=== PATIENT | male | born 1980 | race African-American/Black ===

== ENCOUNTER 2019-07-01 17:04 | Emergency (ER) | payer OTHER ==
[2019-07-01 17:15] VITALS: BP 177/97; PULSE 134; TEMP 99.7
--- NOTE | 2019-07-01 17:15 | PDOC ---
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 who presents with exposure to COVID-19 with associated symptoms of dry cough and back pain. No comorbidities. ROS: NEGATIVE: difficulty breathing, shortness of breath, chest pain, lightheadedness, dizziness, nausea, vomiting and diarrhea. Other 12 point ROS reviewed and negative. Exam: General: NAD, Well-Appearing, Awake, Alert Oriented x3. HR 134. ENT: No rhinorrhea or nasal congestion. Neck: FROM, no midline tenderness. Lungs: Clear to auscultation bilaterally without wheezes, rhonchi or rales. Normal excursion. Patient is able to speak in full sentences. Heart: Tachycardic, regular rhythm, S1-S2 present, no murmurs rubs or gallops. Abdomen: Non-distended. MSK/Extremities: No decrease ROM, No obvious deformities. No obvious cyanosis noted. Neuro: Normal Gait, Cranial Nerves II through XII Grossly Intact. Skin: No obvious rashes, bruising. Color Normal Appearing. Assessment/Plan: Tachycardia Known exposure ASSESSMENT: Reports exposure to positive patients. Treatment: Tylenol for fever / recheck HR CXR Discharge Disposition - Diagnosis Cough - Discharge Dispostion Decision to Admit order: No - Referrals - Patient Instructions Printed Discharge Instructions: [facility]-Coronavirus Instructions, [facility] COVID-19 Isolation Protocol Additional Instructions: You were seen for your cough and possible Coronavirus (COVID-19) Please call the [facility] testing center to make an appointment at or you can call [facility] at from 8:30 AM to 6 PM; or you can visit the [facility] website: [email or web address] for more information about testing at the [facility]. Take Tylenol 650 mg every 6 hours as needed for fever or pain. You may take Robitussin or other [id number] cough syrup. Follow the dosing instructions on the bottle. Warm tea, honey, and salt water gargles may help your symptoms. Please take precautions and self quarantine for 2 weeks and follow-up with your primary care doctor and the Department of Health. Return to the nearest emergency department for shortness of breath, difficulty breathing, chest pain, or if you have any changes in your symptoms. - Post Discharge Activity
[2019-07-01] MEDS ORDERED: ACETAMINOPHEN 325 MG TABLET (FP) PO ONE (17:16)
== END 2019-07-01 18:02 | disposition home or self-care (01) ==
LOC: JER 17:04
DX: R05 Cough (principal); Z20.828 Contact with and (suspected) exposure to other viral communicable diseases
CPT/HCPCS: 71045-TC-FY; 99283-25

== ENCOUNTER 2020-01-20 05:16 | Day surgery (SDC) | payer OTHER ==
--- OUTSIDE RECORDS SUMMARY | 2020-01-12 07:47 | XMS ---
:1980 Author Organization [facility] Care Team Providers Name Role Phone Matt Alcaraz Unavailable Unavailable Other, Doctor Unavailable Unavailable Edenilson, Manuel Unavailable Unavailable Re-disclosure Warning The records that you are about to access may contain information from federally- assisted alcohol or drug abuse programs. If such information is present, then the following federally mandated warning applies: This information has been disclosed to you from records protected by federal confidentiality rules (42 CFR part 2). The federal rules prohibit you from making any further disclosure of this information unless further disclosure is expressly permitted by the written consent of the person to whom it pertains or as otherwise permitted by 42 CFR part 2. A general authorization for the release of medical or other information is NOT sufficient for this purpose. The Federal rules restrict any use of the information to criminally investigate or prosecute any alcohol or drug abuse patient.The records that you are about to access may contain highly sensitive health information, the redisclosure of which is protected by Article 27-F of the [facility] Public Health law. If you continue you may haveaccess to information: Regarding HIV / AIDS; Provided by facilities licensed or operated by the [facility] Office of Mental Health; or Provided by the [facility] Office for People With Developmental Disabilities. If such information is present, then the following [facility] mandated warning applies: This information has been disclosed to you from confidential records which are protected by state law. State law prohibits you from making any further disclosure of this information without the specific written consent of the person to whom it pertains, or as otherwise permitted by law. Any unauthorized further disclosure in violation of state law may result in a fine or care home sentence or both. A general authorization for the release of medical or other information is NOT sufficient authorization for further disclosure. Encounters Encounter Providers Location Date Indications Data Source(s ) Emergency Attender: Matt 5T-EMERG 01/08/2020 LT SHOULDER PAIN [place] - [place] LathanAttender: 09:26:00 AM Hospital Doctor Other EDT - 01/08/2020 10:36:00 AM EDT LT SHOULDER PAIN Patient discharged. Emergency Attender: Manuel 5T-EMERG 07/10/2019 DIZZINESS [facility] [place] [facility] GustaveAttender: Doctor 08:45:00 AM EDT - [facility] Other 07/10/2019 12:42:00 PM EDT DIZZINESS Patient discharged. Medications Medication Brand Start Product Dose Route [facility] Indications Reaction Description Data Name Date Form Instructions Instructions Source(s) Ibuprofen ibupro [id number] active Ibuprof en [facility] 600 MG Oral fen 2019 {tab( Health Tablet 600 mg 10:01: s)} System ibuprofen oral 37 AM 600 mg oral tablet EDT tablet Do not take this drug if you are pregnan t.It is very important that you take or use this exactly as directed. Do not skip d oses or discontinue unless directed by your doctor.May cause drowsiness or dizziness .Obtain medical advice before taking any non-prescription drugs as some may affec t the action of this medication.Take with food or milk. benzonatate benzonatate 07/10/2019 1 [id number] completed Benzonatate [facility] 100 MG Oral 100 mg oral 11:49:20 AM {cap(s)} Health Capsule capsule EDT System benzonatate 100 mg oral capsule May cause drowsiness. Alcohol may inten sify this effect. Use care when operating dangerous machinery.Swallow whole. Do n ot crush. Insurance Providers Payer name Policy type Policy ID Covered Covered Policy Plan / Coverage democrat ID democrat's [employer] In[employer]i on type relationship to rebolledo Affinity Ess Commercial [id number] Plan 1&2 Century Commercial [id number] Protective Services Occupational Commercial [id number] Health NR AFFINITY [id number] ESSENTIAL PLAN 1 2 Problems, Conditions, and Diagnoses Code Display Name Description Problem Type Effective Dates Data Source(s) T14.8XXA Contusion Contusion 07617-9 01/08/2020 12:00:00 [facility] EDT System left shoulder R42 Dizziness Dizziness 48064-4 07/10/2019 [facility] 12:00:00 AM EDT Health stem R05 Cough Cough 39323-8 07/10/2019 [facility] 12:00:00 AM EDT Health stem M25.512 Pain in left Left shoulder Diagnosis 01/08/2020 S - [facility] [facility] pain 09:26:00 AM EDT [facility] Y92.89 Other specified Other specified Diagnosis 01/08/2020 [facility] - [facility] as the places as place 09:26:00 AM EDT [facility] place of of occurrence of occurrence of the external cause external cause T14.8XXA Other injury of Other injury of Diagnosis 01/08/2020 S - [facility] unspecified body unspecified body 09:26:00 AM E [facility] region, initial region, initial encounter encounter W20.8XXA Other cause of Other cause of Diagnosis 01/08/2020 S - [facility] strike by thrown, strike by thrown, 09:26:00 AM EDT [facility] projected or projected or falling object, falling object, initial encounter initial encounter LT SHOULDER PAIN LT SHOULDER PAIN Diagnosis 01/08/2020 [facility] [place] 09:26:00 AM EDT [facility] Y99.0 Civilian activity Civilian activity Diagnosis 01/08/2020 S - [place] done for income done for income 09:26:00 AM EDT [facility] or pay or pay Y93.89 Activity, other Other activity Diagnosis 01/08/2020 S - [place] specified 09:26:00 AM EDT [facility] R42 Dizziness and Dizziness Diagnosis 07/10/2019 [place] - [place] giddiness 08:45:00 AM EDT [facility] DIZZINESS DIZZINESS Diagnosis 07/10/2019 [facility] - [place] 08:45:00 AM EDT [facility] R05 Cough Cough Diagnosis 07/10/2019 [facility] - [place] 08:45:00 AM EDT [facility] Surgeries/Procedures Procedure Description Date Indications Data Source(s) XR Shoulder 2 01/08/2020 [facility] Views-Left XR Shoulder 09:56:00 AM EDT - System 2 Views-Left 01/08/2020 09:56:00 AM EDT Results ID Date Data Source [id number] 01/08/2020 11:37:02 AM EDT [facility] Name Value Range Interpretation Description Data Sup porting Code Source(s) Document(s ) Quantit NegativeNegative Normal (applies Quantiteron-T [facility] parul-TB test result. M. to non-numeric B Gold. Health Gold. tuberculosis results) System complex infectionunlikely. TBAG-NI < 0.00 Normal (applies TB AG-NIL [facility] L to non-numeric Health results) System Mitogen > 10.00 Normal (applies Mitogen-NIL [facility] -NIL to non-numeric Health results) System The Nil tube value is used to determine if the patient has apreexisting immune response which could cause a false-posit klaudia reading on the test.In order for a test to be valid, the Nil tube must have aval ue of <=8.0 IU/mL.The mitogen control tube is used to assure the patient hasa healthy immune status and also serves as a control forcorrect blood handling and incubation . It is used to detectfalse-negative readings. The mitogen tube must have a g ammainterferon value >=0.5 IU/mL higher than the value of the Niltube.The TB Antigen tube is coated with the M. tuberculosisspecific antigens. For a te st to be considered positive,the TB antigen tube value minus the Nil tube value must be>=0.35 IU/mL.For additional information, please refer [email or web address]/QFT(This link is being provided for informational/educationalpu rposes only.)Test Performed at:[facility] [address], [place], [place] [address]PplutbopAjit Lemons M.D. NIL 0.11 {IU/mL} Normal (applies to non-numeric NIL [facility] results) ID Date Data Source [id number] 01/08/2020 11:37:02 AM EDT [facility] Name Value Range Interpretation Description Data Source(s ) Supporting Code Document(s ) Hepatiti 13 Normal (applies to Hepatitis B [facility] sBSurfac {mIU/mL} non-numeric [facility] eAntibod results) Antibody. y. Patient has immunity to hepatitis B viru s.Test Performed at:[facility], [place] [address] Ajit Lemons M.D. ID Date Data Source [id number] 01/08/2020 11:37:02 AM EDT [facility] System Name Value Range Interpretation Description Data Sup porting Code Source(s) Document(s ) MumpsIgGAntibody > 5.00 Normal (applies Mumps IgG [facility] to non-numeric Antibody Health results) System UNITS: Index ValueInterpretation: Posit klaudia or ImmuneA positive result indicates that the patient has antibodyto Mumps Virus. It does not differentiate between active orpast infection. The clinical diagnosis must be interpretedin conjunction with the clinical signs and symptoms of thepatien t.Index Value Results Interpretation <0 .91 Negative - No Mumps IgG ant ibody detected.0.91-1.09 Equivocal - Presence or absence of Mumps IgGantibody cannot be discerned.>=1.10 Positive - Mumps IgG antibody de tected.Test Performed at:[facility], [place], [place] [address]YwmwroxmAjit Lemons M.D. ID Date Data Source [id number] 01/08/2020 11:37:02 AM EDT [facility] System Name Value Range Interpretation Description Data Sup porting Code Source(s) Document(s ) VaricellaResultVa 2.09 Normal (applies Varicella [facility] lue to non-numeric Result Value Health results) System VaricellaInterpre Positive Normal (applies Varicella [facility] tation <0.6 to non-numeric Interpretation Health results) System Negative> =0.6 - <.90 Equivocal >=.90 Positive ID Date Data Source [id number] 01/08/2020 11:37:02 AM EDT [facility] System Name Value Range Interpretation Description Data Sup porting Code Source(s) Document(s ) Rubella 163 Normal (applies Rubella [facility] {IU/mL} to non-numeric Health results) System RubellaInterpreta Positive Normal (applies Rubella [facility] tion <5 to non-numeric Interpretation Health Negative> results) System =5 - <10 Equivocal >= 10 Positive ID Date Data Source [id number] 01/08/2020 11:37:02 AM EDT [facility] System Name Value Range Interpretation Description Data Sup porting Code Source(s) Document(s ) RubeolaABIgGResul 2.80 Normal (applies Rubeola AB IgG M [facility] tValue to non-numeric Result Value Health results) System RubeolaABIgGinter Positive Normal (applies Rubeola AB IgG [facility] pretation to non-numeric interpretation Health results) System <.50 Negative>=.50 - <.70 Equivo august>=.70 Positive ID Date Data Source [id number] 01/08/2020 11:37:02 AM EDT [facility] System Name Value Range Interpretation Description Data Sup porting Code Source(s) Document(s ) Erythrocytes 5.32 Normal (applies RBC Count [facility] [#/volume] in {10^6_uL to non-numeric Health Blood by } results) System Automated count Leukocytes 5.5 Normal (applies WBC Count [facility] [#/volume] in {10^3_uL to non-numeric Health Unspecified } results) System specimen by Automated count Hemoglobin 14.3 Normal (applies Hemoglobin [facility] [Mass/volume] in {gm/dL} to non-numeric Health Blood results) System Erythrocyte mean 85.3 fl Normal (applies MCV [facility] corpuscular to non-numeric Health volume [Entitic results) System volume] by Automated count Hematocrit 45.4 % Normal (applies Hematocrit [facility] [Volume to non-numeric Health Fraction] of results) System Blood Erythrocyte mean 26.9 pg Below low normal MCH [facility] corpuscular Health hemoglobin System [Entitic mass] by Automated count Erythrocyte 13.4 % Normal (applies RDW-CV [facility] distribution to non-numeric Health width [Entitic results) System volume] by Automated count Erythrocyte mean 31.5 Normal (applies MCHC [facility] corpuscular {gm/dL} to non-numeric Health hemoglobin results) System concentration [Mass/volume] by Automated count Platelets 242 Normal (applies Platelet Count [facility] [#/volume] in {10^3_uL to non-numeric Health Plasma by } results) System Automated count Platelet mean 10.7 fl Normal (applies MPV [facility] volume [Entitic to non-numeric Health volume] in Blood results) System by Automated count Neutrophils 3.5 Normal (applies Neutrophil # [facility] [#/volume] in {10^3_uL to non-numeric Health Body fluid } results) System NRBC# 0.00 Normal (applies NRBC # [facility] {10^3_uL to non-numeric Health } results) System Nucleated 0.0 Normal (applies NRBC % [facility] erythrocytes {/100_WB to non-numeric Health [#/volume] in C} results) System Body fluid Neutrophils/100 64.6 % Normal (applies Neutrophil % Aramis arabella leukocytes in to non-numeric Health Blood by results) System Automated count Lymphocyte 1.3 Normal (applies Lymphocyte # [facility] percent {10^3_uL to non-numeric Health differential } results) System count (procedure) Monocytes/100 6.4 % Normal (applies Monocyte % [facility] leukocytes in to non-numeric Health Blood results) System Monocytes 0.4 Normal (applies Monocyte # [facility] [#/volume] in {10^3_uL to non-numeric Health Blood by Manual } results) System count Lymphocytes 23.3 % Normal (applies Lymphocyte % [facility] [#/volume] in to non-numeric Health Blood by results) System Automated count Basophils 0.05 Normal (applies Basophil # [facility] [#/volume] in {10^3_uL to non-numeric Health Blood by } results) System Automated count Eosinophils/100 4.4 % Normal (applies Eosinophil % Aramis arabella leukocytes in to non-numeric Health Unspecified results) System specimen Basophils/100 0.9 % Normal (applies Basophil % [facility] leukocytes in to non-numeric Health Unspecified results) System specimen by Manual count Eosinophils 0.24 Normal (applies Eosinophil # [facility] [#/volume] in {10^3_uL to non-numeric Health Blood } results) System ImmatureGranuloc 0.02 Normal (applies Immature [facility] ytes# {10^3_uL to non-numeric Granulocytes # Health } results) System ImmatureGranuloc 0.4 % Normal (applies Immature [facility] ytes% to non-numeric Granulocytes % Health results) System ID Date Data Source [id number] 01/08/2020 11:37:02 AM EDT [facility] System Name Value Range Interpretation Description Data Sup porting Code Source(s) Document(s ) HepatitisBSurf Non Normal (applies Hepatitis B [facility] aceAntigen. ReactiveReferen to non-numeric [facility] ce Range: Non results) Antigen. System ReactiveTest Performed at:[facility], [place], [place] Moshe Lemons M.D. HepatitisBSurf DNRTest Normal (applies Hepatitis B [facility] aceAntigenNeut Performed to non-numeric [facility] at:[facility] results) Antigen Neut [facility], [place], [place] Moshe Lemons M.D. ID Date Data Source [id number] 01/08/2020 11:37:02 AM EDT [facility] Name Value Range Interpretation Description Data Sup porting Code Source(s) Document(s ) Potassium 4.4 Normal (applies Potassium, [facility] [Mass/volume] mmol/L to non-numeric Serum Health Syst em in Serum or results) Plasma Sodium 139 Normal (applies Sodium, Serum [facility] [Moles/volume mmol/L to non-numeric Health Syst em ] in Serum or results) Plasma Chloride 101 Normal (applies Chloride, [facility] [Moles/volume mmol/L to non-numeric Serum Health Syst em ] in Serum or results) Plasma Carbon 31.3 Above high normal CO2, Serum [facility] dioxide, mmol/L Health System total [Moles/volume ] in Serum or Plasma Urea nitrogen 11 mg/dl Normal (applies Blood Urea [facility] [Mass/volume] to non-numeric Nitrogen, Health Syst em in Serum or results) Serum Plasma Glucose 81 mg/dL Normal (applies Glucose, Serum [facility] [Mass/volume] to non-numeric Health Syst em in Serum or results) Plasma Anion gap in 6.70 Normal (applies Anion Gap [facility] Serum or mmol/L to non-numeric Health System Plasma results) Creatinine 1.00 Normal (applies Creatinine, [facility] [Mass/volume] mg/dl to non-numeric Serum Health Syst em in Serum or results) Plasma Calcium 9.6 Normal (applies Calcium, Total [facility] [Mass/volume] mg/dl to non-numeric Serum Health Syst em in Serum or results) Plasma ID Date Data Source [id number] 01/08/2020 11:37:02 AM EDT [facility] Name Value Range Interpretation Description Data Sup porting Code Source(s) Document(s ) Aspartate 21 Normal (applies Aspartate [facility] aminotransferase {IU/L} to non-numeric Transaminase, Heal th [Enzymatic results) Serum System activity/volume] in Serum or Plasma by With P-5'-P Bilirubin.total 0.7 Normal (applies Bilirubin, [facility] [Mass/volume] in mg/dl to non-numeric Serum Total Health Serum or Plasma results) System Albumin 4.5 Normal (applies Albumin, [facility] [Mass/volume] in {gm/dl} to non-numeric Serum Health Serum or Plasma results) System TotalProtein 7.5 Normal (applies Total Protein [facility] mg/dl to non-numeric Health results) System Alkaline 57 Normal (applies Alkaline [facility] phosphatase {IU/L} to non-numeric Phosphatase, Health isoenzymes results) Serum System [Enzymatic activity/volume] in Serum or Plasma by Heat stability Alanine 22 Normal (applies Alanine [facility] aminotransferase {IU/L} to non-numeric Aminotransfer Heal th [Enzymatic results) ase, Serum System activity/volume] in Serum or Plasma DirectBilirubin 0.1 Normal (applies Direct [facility] mg/dl to non-numeric Bilirubin Health results) System ID Date Data Source [id number] 01/08/2020 11:37:02 AM EDT [facility] System Name Value Range Interpretation Description Data Sup porting Code Source(s) Document(s ) Triglyceride 75 mg/dl Normal (applies Triglycerides, [facility] [Mass/volume] to non-numeric Serum Health in Serum or results) System Plasma Optimal = < 100 mg/dLBoderline High = 15 0 - 199 mg/dLHigh = 200 - 499 mg/dLVery High = > 500 mg/dL Cholesterol 182 mg/dl Normal (applies Cholesterol, Serum [facility] [Mass/volume] in to non-numeric ZENTICKET S ystem Serum or Plasma results) <200 mg/tx=[id number] mg/dl=border line>240 mg/dl=elevated Cholesterol in LDL 124 mg/dL Normal (applies Low Density [facility] [Mass/volume] in to non-numeric Lipoprotein, Healt h System Serum or Plasma results) Calculated OPTIMAL: LESS THAN 100 mg/dLNEAR OPTIMAL : 100 - 129 mg/dLBODERLINE HIGH: 130 - 150 mg/dL Cholesterol in HDL 43.0 mg/dL Normal (applies HDL Cholestero l, [facility] [Mass/volume] in to non-numeric Serum ZENTICKET S ystem Serum or Plasma results) CHDRisk 4.23 Normal (applies CHD Risk [facility] to non-numeric Health System results) Lowest <3.8Low 3.9 - 4.7Moderate 4 .8 - 5.9High 6.0 - 6.9Highest >7.0 Cholesterol in VLDL 15 Normal (applies to VLDL, Serum [employer] [Mass/volume] in Serum non-numeric results) System or Plasma ID Date Data Source [id number] 01/08/2020 11:37:02 AM EDT [facility] System Name Value Range Interpretation Code Description Data Heidi rce(s) Supporting Document(s ) HbA1C 5.2 % Normal (applies to HbA1C [facility] non-numeric results) System ID Date Data Source [id number] 01/08/2020 11:37:02 AM EDT [facility] System Name Value Range Interpretation Description Data Sup porting Code Source(s) Document(s ) Erythrocytes 5.03 Normal (applies RBC Count [facility] [#/volume] in {10^6_uL to non-numeric Health Blood by } results) System Automated count Hemoglobin 13.3 Below low normal Hemoglobin [facility] [Mass/volume] in {gm/dL} Health Blood System Leukocytes 6.8 Normal (applies WBC Count [facility] [#/volume] in {10^3_uL to non-numeric Health Unspecified } results) System specimen by Automated count Erythrocyte mean 30.9 Below low normal MCHC [facility] corpuscular {gm/dL} Health hemoglobin System concentration [Mass/volume] by Automated count Erythrocyte mean 85.7 fl Normal (applies MCV [facility] corpuscular to non-numeric Health volume [Entitic results) System volume] by Automated count Erythrocyte mean 26.4 pg Normal (applies MCH [facility] corpuscular to non-numeric Health hemoglobin results) System [Entitic mass] by Automated count Hematocrit 43.1 % Normal (applies Hematocrit [facility] [Volume to non-numeric Health Fraction] of results) System Blood Platelet mean 11.0 fl Above high normal MPV [facility] volume [Entitic Health volume] in Blood System by Automated count Platelets 220 Normal (applies Platelet [facility] [#/volume] in {10^3_uL to non-numeric Count Health Plasma by } results) System Automated count Erythrocyte 13.3 % Normal (applies RDW-CV [facility] distribution to non-numeric Health width [Entitic results) System volume] by Automated count ID Date Data Source [id number] 01/08/2020 11:37:02 AM EDT [facility] System Name Value Range Interpretation Description Data Sup porting Code Source(s) Document(s ) Thyrotropin 0.636 Normal (applies Thyroid [facility] [Mass/volume] {mIU/mL} to non-numeric Stimulating Health Sy stem in Serum or results) Hormone, Serum Plasma ID Date Data Source [id number] 01/08/2020 11:37:02 AM EDT [facility] System Name Value Range Interpretation Description Data Sup porting Code Source(s) Document(s ) Sodium 145 Normal (applies Sodium, Serum [facility] [Moles/volume] in mmol/L to non-numeric Health Serum or Plasma results) System Carbon dioxide, 25.0 Normal (applies CO2, Serum [facility] total mmol/L to non-numeric Health [Moles/volume] in results) System Serum or Plasma Potassium 3.9 Normal (applies Potassium, [facility] [Mass/volume] in mmol/L to non-numeric Serum Health Serum or Plasma results) System Chloride 107 Normal (applies Chloride, [facility] [Moles/volume] in mmol/L to non-numeric Serum Health Serum or Plasma results) System TotalProtein 7.6 Normal (applies Total Protein [facility] mg/dl to non-numeric Health results) System Glucose 85 Normal (applies Glucose, [facility] [Mass/volume] in mg/dL to non-numeric Serum Health Serum or Plasma results) System Creatinine 1.20 Normal (applies Creatinine, [facility] [Mass/volume] in mg/dl to non-numeric Serum Health Serum or Plasma results) System Alkaline 68 Normal (applies Alkaline [facility] phosphatase {IU/L} to non-numeric Phosphatase, Health isoenzymes results) Serum System [Enzymatic activity/volume] in Serum or Plasma by Heat stability Urea nitrogen 15 Normal (applies Blood Urea [facility] [Mass/volume] in mg/dl to non-numeric Nitrogen, Health Serum or Plasma results) Serum System Bilirubin.total 0.3 Normal (applies Bilirubin, [facility] [Mass/volume] in mg/dl to non-numeric Serum Total Health Serum or Plasma results) System Aspartate 19 Normal (applies Aspartate [facility] aminotransferase {IU/L} to non-numeric Transaminase, Heal th [Enzymatic results) Serum System activity/volume] in Serum or Plasma by With P-5'-P DirectBilirubin 0.1 Normal (applies Direct [facility] mg/dl to non-numeric Bilirubin Health results) System I.Phosphorus 3.9 Normal (applies I. Phosphorus [facility] mg/dl to non-numeric Health results) System Alanine 26 Normal (applies Alanine [facility] aminotransferase {IU/L} to non-numeric Aminotransfer Heal th [Enzymatic results) ase, Serum System activity/volume] in Serum or Plasma Albumin 4.6 Normal (applies Albumin, [facility] [Mass/volume] in {gm/dl} to non-numeric Serum Health Serum or Plasma results) System Urate 6.7 Normal (applies Uric Acid, [facility] [Mass/volume] in mg/dl to non-numeric Serum Health Serum or Plasma results) System Calcium 9.6 Normal (applies Calcium, [facility] [Mass/volume] in mg/dl to non-numeric Total Serum Health Serum or Plasma results) System A/GRatio 1.53 Normal (applies A/G Ratio [facility] to non-numeric Health results) System Glomerular 69.00 Normal (applies GFR [facility] filtration to non-numeric Health rate/1.73 sq results) System M.predicted [Volume Rate/Area] in Serum or Plasma by Creatinine-based formula (CKD-EPI) eGFR will provide clinicians with a more accurate indicator of renal function then the serum creatinine. The eGFR is automa tically calculated from an empiric formula (endorsed by the [employer] ion) which incorporates age, sex, and race.Clinicians may notice surprisingly low GFR's with serum creatinine valueswithin normal range- particularly in elderly wo men (with low muscle mass).In the hospital setting, the eGFR should add an element of safety in drug dosing, in assessing the risk of IV contrast administration, and in assessing vascular risk.The NKF staging system is as follows:Normal: eGFR >90 with no kidney markersStage 1: eGFR >90 with kidney markers*Stage 2: eGFR 60- 89Stage 3: eGFR 30-59Stage 4: eGFR 15-29Stage 5: eGFR <15 (usually requir ing dialysis)*Markers include: Proteinuria, Hematuria, abnormal imaging-studies, or other blood or urine test abnormalities Anion gap in Serum 13.00 mmol/L Above high normal Anion Gap [facility] System ID Date Data Source [id number] 01/08/2020 11:37:02 AM EDT [facility] System Name Value Range Interpretation Description Data Source(s ) Supporting Code Document(s ) Troponin 0.00 Normal (applies to Troponin I [facility] IQuantit ng/mL non-numeric Quantitative - [facility] System ative-MV results) MV Only Only ID Date Data Source [id number] 01/08/2020 11:37:02 AM EDT [facility] System Name Value Range Interpretation Description Data Sup porting Code Source(s) Document(s ) Creatine 213 Above high normal Creatine [facility] kinase.MB {IU/L} Kinase, [facility] [Mass/volume ] in Serum or Plasma ID Date Data Source [id number] 01/08/2020 09:56:00 AM EDT [facility] Radiographs of the LEFT shoulderPATIENT DEMOGRAPHICS: Male patient 39 yearsCLINICAL INFORMATION: Trauma; FRACTURE. I NJURY. TRAUMA.ENCOUNTER / stage of care for trauma patient:InitialTECHNIQUE: Fronta l views of the LEFT shoulder in internal andexternal rotation were obtained. AY- view was also obtained.COMPARISON: No relevant prior examinations are availabl eforreview.FINDINGS:The glenohumeral joint remains located ; it appears intactwith outsignificant arthropathy. No fracture is seen. Nodestructive bone lesion is ident ified.Theacromioclavicular joint remains aligned and appears intact.The periartic ular soft tissues appear intact. Nopathologiccalcifications are seen. No radiopaque foreign body isidentified. The visualized chest wall andribs appear int act.IMPRESSION: Unremarkable radiographs of the shoulder.ElectronicallySigned:Duane Hernandez, at 10:23 EDTTel , Service support [phone] Name Value Range Interpretation Code Description Data Heidi rce(s) Supporting Document(s ) Procedure Vital Signs ID Date Data Source UNK Name Value Range Interpretation Code Description Data Source(s) Body temperature 98.5 [degF] 0 - 200 Normal (applies to 98.5 [degF ] [facility] non-numeric results) [facility] Body temperature 36.9 Candi 0 - 99.9 Normal (applies to 36.9 Candi [facility] non-numeric results) [facility] Diastolic blood 90 mm[Hg] 0 - 999 Above high normal 90 mm[Hg] [facility] pressure [facility] Systolic blood 132 mm[Hg] 0 - 999 Normal (applies to 132 mm[Hg] [facility] pressure non-numeric results) [facility] Oxygen saturation 98 % 0 - 999 Normal (applies to 98 % [facility] in Arterial blood non-numeric results) [facility] by Pulse oximetry Respiratory rate 16 0 - 999 Normal (applies to 16 [facility] non-numeric results) [facility] Heart rate 86 0 - 999 Normal (applies to 86 [facility] non-numeric results) [facility] Body surface area 1.9 m2 1.9 m2 [facility] Derived from Health Syste m formula Body mass index 28.1 kg/m2 28.1 kg/m2 [facility] (BMI) [Ratio] Health Syst Body weight 83.91 kg 83.91 kg [facility] System Body height 172.72 cm 172.72 cm [facility] Body surface area 2.1 m2 2.1 m2 [facility] Derived from Health Syste m formula Body mass index 33.4 kg/m2 33.4 kg/m2 [facility] (BMI) [Ratio] Health Syst Body weight 99.79 kg 99.79 kg [facility] System Body height 172.72 cm 172.72 cm [facility] Body temperature 98.6 [degF] 0 - 200 Normal (applies to 98.6 [degF ] [facility] non-numeric results) [facility] Body temperature 37 Candi 0 - 99.9 Normal (applies to 37 [facility]) [facility] Diastolic blood 91 mm[Hg] 0 - 999 Above high normal 91 mm[Hg] [facility] pressure [facility] Systolic blood 130 mm[Hg] 0 - 999 Normal (applies to 130 mm[Hg] [facility] pressure non-numeric results) [facility] Oxygen saturation 97 % 0 - 999 Normal (applies to 97 % [facility] in Arterial blood non-numeric results) [facility] by Pulse oximetry Respiratory rate 17 0 - 999 Normal (applies to 17 [facility] non-numeric results) [facility] Heart rate 108 0 - 999 Above high normal 108 [facility] Patient Treatment Plan of Care Planned Activity Planned Date Details Description Data Source (s) Ibuprofen 600 MG Oral 01/08/2020 10:01:37 [facility] Tablet AM EDT System benzonatate 100 MG Oral 07/10/2019 11:49:20 [facility] Capsule AM EDT System
[2020-01-19 15:07] VITALS: BMI 29.7
--- OUTSIDE RECORDS SUMMARY | 2020-01-20 05:21 | XMS ---
:1980 Author Organization [facility] Care Team Providers Name Role Phone KieranMatt nixon Unavailable Unavailable Other, Doctor Unavailable Unavailable Edenilson, [...] protected by Article 27-F of the [facility] Public Health law. If you continue you may haveaccess to information: Regarding HIV / AIDS; Provided by facilities licensed or operated by the [facility] Office of Mental Health; or Provided by the [facility] Office for People With Developmental Disabilities. If such information is present, then the following [facility] mandated warning applies: This information has [...] law may result in a fine or fci sentence or both. A general authorization for the release of medical or other information is NOT sufficient authorization for further disclosure. Encounters Encounter Providers Location Date Indications Data Source(s ) Emergency Attender: Matt 5T-EMERG 01/08/2020 LT SHOULDER PAIN [facility] - Schwertner LathanAttender: 09:26:00 AM Hospital Doctor Other EDT - 01/08/2020 10:36:00 AM EDT LT SHOULDER PAIN Patient discharged. Emergency Attender: Manuel 5T-EMERG 07/10/2019 DIZZINESS [facility] - Scott dunn RalphaveAttender: Doctor 08:45:00 AM EDT - [facility] Other 07/10/2019 12:42:00 PM EDT DIZZINESS Patient discharged. Medications Medication Brand Start Product Dose Route Administrative Pharm[facility] Indications Reaction Description Data Name Date Form Instructions Instructions Source(s) Ibuprofen ibupro [id number] active Ibuprof en [facility] 600 MG Oral 2019 {tab( Health Tablet 600 mg 10:01: [...] food or milk. benzonatate benzonatate 07/10/2019 1 [id number] completed Benzonatate [facility] 100 MG Oral 100 mg oral 11:49:20 AM {cap(s)} Health Capsule capsule EDT System benzonatate 100 mg oral capsule May cause drowsiness. Alcohol may inten sify this effect. Use care when operating dangerous machinery.Swallow whole. Do n ot crush. Insurance Providers Payer name Policy type Policy ID Covered Covered Policy Plan / Coverage republican ID republican's [employer] on type relationship to rebolledo [facility] [id number] ESSENTIAL PLAN 1 2 [facility]inity [facility] Commercial [id number] 1 [id number] Plan 1&2 Century Commercial [id number] Protective Services Occupational Commercial [id number] Health AFFINITY [id number] ESSENTIAL PLAN 1 2 Problems, Conditions, and Diagnoses Code Display Name Description Problem Type Effective Dates Data Source(s) T14.8XXA Contusion Contusion 29370-6 01/08/2020 12:00:00 [facility] AM EDT System left shoulder R42 Dizziness Dizziness 66207-0 07/10/2019 [facility] 12:00:00 AM EDT Health Sy stem R05 Cough Cough 30824-5 07/10/2019 [facility] 12:00:00 AM EDT Health Sy stem M25.512 Pain in left Left shoulder Diagnosis 01/08/2020 S - [facility] nt shoulder pain 09:26:00 AM EDT [facility] spital Y92.89 Other specified Other specified Diagnosis 01/08/2020 S - [facility] places as the places as place 09:26:00 AM EDT [facility] place of of occurrence of occurrence of the external cause external cause T14.8XXA Other injury of Other injury of Diagnosis 01/08/2020 S - [facility] unspecified body unspecified body 09:26:00 AM [facility] region, initial region, initial encounter encounter W20.8XXA Other cause of Other cause of Diagnosis 01/08/2020 S - [facility] strike by thrown, strike by thrown, 09:26:00 AM [facility] projected or projected or falling object, falling object, initial encounter initial encounter LT SHOULDER PAIN LT SHOULDER PAIN Diagnosis 01/08/2020 [facility] [place] 09:26:00 AM EDT [facility] spital Y99.0 Civilian activity Civilian activity Diagnosis 01/08/2020 S - [place] done for income done for income 09:26:00 AM [facility] or pay or pay Y93.89 Activity, other Other activity Diagnosis 01/08/2020 [facility] [place] specified 09:26:00 AM EDT [facility] spital R42 Dizziness and Dizziness Diagnosis 07/10/2019 [facility] [place] giddiness 08:45:00 AM EDT [facility] spital DIZZINESS DIZZINESS Diagnosis 07/10/2019 [facility] [place] 08:45:00 AM EDT Sharan Sherman spital R05 Cough Cough Diagnosis 07/10/2019 [facility] [place] 08:45:00 AM EDT Sharan álvarez Surgeries/Procedures Procedure Description Date Indications Data Source(s) XR Shoulder 2 01/08/2020 Karlos Hea [facility] Views-Left XR Shoulder 09:56:00 AM EDT - System 2 Views-Left 01/08/2020 09:56:00 AM EDT Results ID Date Data Source [id number] 01/08/2020 11:37:02 AM EDT [facility]th [...] must be>=0.35 IU/mL.For additional information, please refer [email or web address]/QFT(This link is being provided for informational/educationalpu rposes only.)Test Performed at:[facility] [employer], [place], [place] [address]Jfxkmueq Vesta, M.D. NIL 0.11 {IU/mL} Normal (applies to non-numeric NIL [facility] Health System results) ID Date Data Source [id number] 01/08/2020 11:37:02 AM EDT [facility] System Name Value Range Interpretation Description Data Source(s ) Supporting Code Document(s ) Hepatiti 13 Normal (applies to Hepatitis B [facility] sBSurfac {mIU/mL} non-numeric [facility] eAntibod results) Antibody. y. Patient has immunity to hepatitis B viru s.Test Performed at:[address], [place] [address] Ajit Lemons M.D. ID Date Data Source [id number] 01/08/2020 11:37:02 AM EDT [facility] System Name Value Range Interpretation Description Data [...] - Mumps IgG antibody de tected.Test Performed at:[address], [place], [place] [address]QiauavtsAjit Lemons M.D. ID Date Data Source [id number] 01/08/2020 11:37:02 AM EDT [facility] System Name Value Range Interpretation Description Data Sup porting Code Source(s) Document(s ) VaricellaResultVa 2.09 Normal (applies Varicella [facility] lue to non-numeric Result Value Health results) System VaricellaInterpre Positive Normal (applies Varicella [facility] tation <0.6 to non-numeric Interpretation Health results) System Negative> =0.6 - <.90 Equivocal >=.90 Positive ID Date Data Source [id number] 01/08/2020 11:37:02 AM EDT [facility] Name Value Range Interpretation Description Data Sup porting Code Source(s) Document(s ) Rubella 163 Normal (applies Rubella [facility] {IU/mL} to non-numeric Health results) System RubellaInterpreta Positive Normal (applies Rubella [facility] tion <5 to non-numeric Interpretation Health Negative> results) System =5 - <10 Equivocal >= 10 Positive ID Date Data Source [id number] 01/08/2020 11:37:02 AM EDT [facility] He alth [...] Equivo august>=.70 Positive ID Date Data Source [id number] 01/08/2020 11:37:02 AM EDT [facility] He alth [...] Health results) System ID Date Data Source [id number] 01/08/2020 11:37:02 AM EDT [facility] System Name Value Range Interpretation Description Data Sup porting Code Source(s) Document(s ) HepatitisBSurf Non Normal (applies Hepatitis B [facility] aceAntigen. ReactiveReferen to non-numeric [facility] ce Range: Non results) Antigen. System ReactiveTest Performed at:[facility], [place], [place] Moshe Lemons M.D. HepatitisBSurf DNRTest Normal (applies Hepatitis B [facility] aceAntigenNeut Performed to non-numeric [facility] at:[facility] the [facility] results) Antigen Neut [employer], [place], [place] Moshe Lemons M.D. ID Date Data Source [id number] 01/08/2020 11:37:02 AM EDT [facility] alth System Name Value Range Interpretation Description [...] or results) Plasma ID Date Data Source [id number] 01/08/2020 11:37:02 AM EDT [facility] Name Value Range Interpretation Description [...] Health results) System ID Date Data Source [id number] 01/08/2020 11:37:02 AM EDT [facility] He alth System Name Value Range [...] Serum [facility] [Mass/volume] in to non-numeric Health S [employer] Serum or Plasma results) <200 mg/hy=mhoylibrs273-594 mg/dl=border line>240 mg/dl=elevated Cholesterol in LDL 124 mg/dL Normal (applies Low Density [facility] [Mass/volume] in to non-numeric Lipoprotein, Healt h System Serum or Plasma results) Calculated OPTIMAL: LESS THAN 100 mg/dLNEAR OPTIMAL : 100 - 129 mg/dLBODERLINE HIGH: 130 - 150 mg/dL Cholesterol in HDL 43.0 mg/dL Normal (applies HDL Cholestero l, [facility] [Mass/volume] in to non-numeric Serum Health S [employer] Serum or Plasma results) CHDRisk 4.23 Normal (applies CHD Risk [facility] to non-numeric Health System results) Lowest <3.8Low 3.9 - 4.7Moderate 4 .8 - 5.9High 6.0 - 6.9Highest >7.0 Cholesterol in VLDL 15 Normal (applies to VLDL, Serum [facility] [Mass/volume] in Serum non-numeric results) System or Plasma ID Date Data Source [id number] 01/08/2020 11:37:02 AM EDT Karlos Macias alth System Name Value Range Interpretation Code Description Data Heidi rce(s) Supporting Document(s ) HbA1C 5.2 % Normal (applies to HbA1C [employer] non-numeric results) System ID Date Data Source [id number] 01/08/2020 11:37:02 AM EDT [facility] Macias alth System Name Value Range Interpretation Description [...] by Automated count ID Date Data Source [id number] 01/08/2020 11:37:02 AM EDT [facility] System Name Value Range Interpretation Description Data Sup porting Code Source(s) Document(s ) Thyrotropin 0.636 Normal (applies Thyroid [facility] [Mass/volume] {mIU/mL} to non-numeric Stimulating Health Sy stem in Serum or results) Hormone, Serum Plasma ID Date Data Source [id number] 01/08/2020 11:37:02 AM EDT [facility] System Name Value Range Interpretation Description [...] 13.00 mmol/L Above high normal Anion Gap [facility] or Plasma System ID Date Data Source [id number] 01/08/2020 11:37:02 AM EDT [facility] System Name Value Range Interpretation Description Data Source(s ) Supporting Code Document(s ) Troponin 0.00 Normal (applies to Troponin I [facility] IQuantit ng/mL non-numeric Quantitative - Health System ative-MV results) MV Only Only ID Date Data Source [id number] 01/08/2020 11:37:02 AM EDT [facility] Name Value Range Interpretation Description Data Sup porting Code Source(s) Document(s ) Creatine 213 Above high normal Creatine [facility] kinase.MB {IU/L} Kinase, [facility] [Mass/volume ] in Serum or Plasma ID Date Data Source [id number] 01/08/2020 09:56:00 AM EDT [facility] Radiographs of the LEFT shoulderPATIENT DEMOGRAPHICS: Male [...] Hernandez, at 10:23 EDTTel , Service support [phone] Name Value Range Interpretation Code Description Data Heidi rce(s) Supporting Document(s ) Procedure Vital Signs ID Date Data Source UNK Name Value Range Interpretation Code Description Data Source(s) Body temperature 98.5 [degF] 0 - 200 Normal (applies to 98.5 [degF ] [facility] non-numeric results) [facility] Body temperature 36.9 Candi 0 - 99.9 Normal (applies to 36.9 Candi [facility] non-numeric results) [facility] Diastolic blood 90 mm[Hg] 0 - 999 Above high normal 90 mm[Hg] [facility] pressure Health System Systolic blood 132 mm[Hg] 0 - 999 Normal (applies to 132 mm[Hg] [facility] pressure non-numeric results) [facility] Oxygen saturation 98 % 0 - 999 Normal (applies to 98 % [facility] in Arterial blood non-numeric results) [facility] by Pulse oximetry Respiratory rate 16 0 - 999 Normal (applies to 16 [facility] non-numeric results) [facility] Heart rate 86 0 - 999 Normal (applies to 86 [facility] non-numeric results) [facility] Body surface area 1.9 m2 1.9 m2 [facility] ore Derived from Health Syste m formula Body mass index 28.1 kg/m2 28.1 kg/m2 [facility] (BMI) [Ratio] Health Syst em Body weight 83.[address] [facility] Body height 172.[address] [facility] Body surface area 2.1 m2 2.1 m2 [facility] Derived from Health Syste m formula Body mass index 33.4 kg/m2 33.4 kg/m2 [facility] e (BMI) [Ratio] Health Syst em Body weight 99.[address] [facility] Body height 172.[address] [facility] Body temperature 98.6 [degF] 0 - 200 Normal (applies to 98.6 [degF ] [facility] non[facility] results) [facility] Body temperature 37 [place] 0 - 99.9 Normal (applies to 37 [facility]) [facility] Diastolic blood 91 mm[Hg] 0 - 999 Above high normal 91 mm[Hg] [facility] pressure [facility] Systolic blood 130 mm[Hg] 0 - 999 Normal (applies to 130 mm[Hg] [facility] pressure non-numeric results) [facility] Oxygen saturation 97 % 0 - 999 Normal (applies to 97 % [facility] in Arterial blood non-numeric results) [facility] by Pulse oximetry Respiratory rate 17 0 - 999 Normal (applies to 17 [facility] non-numeric results) [facility] Heart rate 108 0 - 999 Above high normal 108 [facility] Patient Treatment Plan of Care Planned Activity Planned Date Details Description Data Source (s) Ibuprofen 600 MG Oral 01/08/2020 10:01:37 [facility] [employer] Tablet AM EDT System benzonatate 100 MG Oral 07/10/2019 11:49:20 [facility] [employer] Capsule AM EDT System
[2020-01-20] MEDS ORDERED: BUPIVACAINE HCL 50 ML ONE (10:01)
[2020-01-20] MEDS ORDERED: MIDAZOLAM HCL 2 MG/2 ML SINGLE DOSE VIAL ONE ×2 (10:06)
[2020-01-20] MEDS ORDERED: PROPOFOL 20 ML ONE ×2 (10:07)
--- NOTE | 2020-01-20 10:11 | HP ---
History & Physical Update - History History: No Change - Physical Physical: No Change - Assessment Assessment: No Change - Plan Plan: No Change
[2020-01-20] MEDS ORDERED: ceFAZolin 2 GRAM PREMIX BAG IVPB ONE (10:40)
[2020-01-20] MEDS ORDERED: LIDOCAINE 1%/EPI 1:100000 (20 ML MULTI DOSE VIAL) IJ ONE (10:48)
--- NOTE | 2020-01-20 11:50 | OP ---
Operative Note - Note: Operative Date: 01/20/20 Pre-Operative Diagnosis: HEMORRHOIDS AND FISTULA IN ANO Operation: EUA, HEMORRHOIDECTOMY, EXCISION OF ANAL PAPILLA AND PERIANAL SINUS TRACT Findings: Stage 3 internal hemorrhoids, anal papilla, perianal draining sinus Post-Operative Diagnosis: Same as Pre-op Surgeon: Jhoan King Anesthesia: Spinal Specimens Removed: hemorrhoids, anal papilla, sinus tract Estimated Blood Loss (mls): 15 Operative Report Dictated: Yes
[2020-01-20] MEDS ORDERED: ONDANSETRON 4 MG/2 ML VIAL IVPUSH PRN (12:42)
[2020-01-20] MEDS ORDERED: oxyCODONE HCL 5 MG TABLET PO PRN (12:42)
[2020-01-20] MEDS ORDERED: LACTATED RINGERS SOLUTION 1,000 ML IV SCH (12:45)
[2020-01-20] MEDS ORDERED: oxyCODONE HCL 5 MG TABLET ONE (16:47)
--- OUTSIDE RECORDS SUMMARY | 2020-01-20 22:08 | XMS ---
:1980 Author Organization [facility] Care Team Providers Name Role Phone [...] is protected by Article 27-F of the [facility] Public Health law. If you continue you may haveaccess to information: Regarding HIV / AIDS; Provided by facilities licensed or operated by the [facility] Office of Mental Health; or Provided by the [facility] Office for People With Developmental Disabilities. If such information is present, then the following [facility] mandated warning applies: This information has [...] law may result in a fine or nursing home sentence or both. A general authorization for the release of medical or other information is NOT sufficient authorization for further disclosure. Encounters Encounter Providers Location Date Indications Data Source(s ) Emergency Attender: Matt 5T-EMERG 01/08/2020 LT SHOULDER PAIN [facility] - Porter LathanAttender: 09:26:00 AM Hospital Doctor Other EDT - 01/08/2020 10:36:00 AM EDT LT SHOULDER PAIN Patient discharged. Emergency Attender: Manuel 5T-EMERG 07/10/2019 DIZZINESS [facility] - Scott dunn RalphaveAttender: Doctor 08:45:00 AM EDT - [facility] Other 07/10/2019 12:42:00 PM EDT DIZZINESS Patient discharged. Medications Medication Brand Start Product Dose Route Administrative Pharmacy [facility] Indications Reaction Description Data Name Date Form Instructions Instructions Source(s) Ibuprofen ibupro [id number] active Ibuprof en [facility] 600 MG Oral [...] food or milk. benzonatate benzonatate 07/10/2019 1 [id number] completed Benzonatate [facility] 100 MG Oral 100 [...] Rebolledo Informati on type relationship to rebolledo [facility] [id number] 500 ESSENTIAL PLAN 1 2 [facility] Commercial [id number] 1 130 [id number] Plan 1&2 [employer] [id number] 1 23703 Protective Services Occupational Commercial [id number] 1 [id number] 09 Health [facility] [id number] 500 ESSENTIAL PLAN 1 2 Problems, Conditions, and Diagnoses Code Display Name Description Problem Type Effective Dates Data Source(s) T14.8XXA Contusion Contusion 02417-8 01/08/2020 12:00:00 [facility] AM EDT System left shoulder R42 Dizziness Dizziness 35736-7 07/10/2019 [facility] 12:00:00 AM EDT Health Sy stem R05 Cough Cough 91552-6 07/10/2019 [facility] 12:00:00 AM EDT Health Sy stem M25.512 Pain in left Left shoulder Diagnosis 01/08/2020 S - [facility] nt shoulder pain 09:26:00 AM EDT [facility] spital Y92.89 Other specified Other specified Diagnosis 01/08/2020 S - [facility] places as the places as place 09:26:00 AM EDT [facility] place of of occurrence of occurrence of the external cause external cause T14.8XXA Other injury of Other injury of Diagnosis 01/08/2020 S - [facility] unspecified body unspecified body 09:26:00 AM [facility] region, initial region, initial encounter encounter W20.8XXA Other cause of Other cause of Diagnosis 01/08/2020 S - [facility] strike by thrown, strike by thrown, 09:26:00 AM [facility] projected or projected or falling object, falling object, initial encounter initial encounter LT SHOULDER PAIN LT SHOULDER PAIN Diagnosis 01/08/2020 [facility] [place] 09:26:00 AM EDT [facility] Y99.0 Civilian activity Civilian activity Diagnosis 01/08/2020 S - [place] done for income done for income 09:26:00 AM [facility] or pay or pay Y93.89 Activity, other Other activity Diagnosis 01/08/2020 [facility] [place] specified 09:26:00 AM EDT [facility] R42 Dizziness and Dizziness Diagnosis 07/10/2019 [facility] giddiness 08:45:00 AM EDT [facility] DIZZINESS DIZZINESS Diagnosis 07/10/2019 [facility] 08:45:00 AM EDT Sharan Sherman spital R05 Cough Cough Diagnosis 07/10/2019 [facility] 08:45:00 AM EDT Sharan álvarez Surgeries/Procedures Procedure Description Date Indications Data Source(s) XR Shoulder 2 01/08/2020 [facility] Views-Left XR Shoulder 09:56:00 AM EDT - System 2 Views-Left 01/08/2020 09:56:00 AM EDT Results ID Date Data Source [id number] 01/17/2020 04:15:00 PM EDT [facility] Name Value Range Interpretation Description Data Sup porting Code Source(s) Document(s ) SARS [facility] coronavirus 2 RNA This lab was ordered by [facility] and reported by [facility]. ID Date Data Source [id number] 01/08/2020 11:37:02 AM EDT [facility] [...] must be>=0.35 IU/mL.For additional information, please refer [email or web address].Sabakat/faq/QFT(This link is being provided for informational/educationalpu rposes only.)Test Performed at:[facility], [place], [place] [address]IjekzpxkCari Lemons M.D. NIL 0.11 {IU/mL} Normal (applies to non-numeric NIL [facility] results) ID Date Data Source [id number] 01/08/2020 11:37:02 AM EDT [facility] System Name Value Range Interpretation Description Data Source(s ) Supporting Code Document(s ) Hepatiti 13 Normal (applies to Hepatitis B [facility] e sBSurfac {mIU/mL} non-numeric [facility] eAntibod results) Antibody. y. Patient has immunity to hepatitis B viru s.Test Performed at:[facility], [place], [place] [address]Jaylen Lemons M.D. ID Date Data Source [id number] 01/08/2020 11:37:02 AM EDT [facility] System Name Value Range Interpretation Description Data [...] - Mumps IgG antibody de tected.Test Performed at:[facility], [place], [place] [address]Kyfkitoeman Lemons M.D. ID Date Data Source [id number] 01/08/2020 11:37:02 AM EDT [facility] Name Value Range Interpretation Description Data Sup porting Code Source(s) Document(s ) VaricellaResultVa 2.09 Normal (applies Varicella [facility] lue to non-numeric Result Value Health results) System VaricellaInterpre Positive Normal (applies Varicella [facility] tation <0.6 to non-numeric Interpretation Health results) System Negative> =0.6 - <.90 Equivocal >=.90 Positive ID Date Data Source [id number] 01/08/2020 11:37:02 AM EDT [facility] Name Value Range Interpretation Description Data Sup porting Code Source(s) Document(s ) Rubella 163 Normal (applies Rubella [facility] {IU/mL} to non-numeric Health results) System RubellaInterpreta Positive Normal (applies Rubella [facility] tion <5 to non-numeric Interpretation Health Negative> results) System =5 - <10 Equivocal >= 10 Positive ID Date Data Source [id number] 01/08/2020 11:37:02 AM EDT [facility] [...] Equivo august>=.70 Positive ID Date Data Source [id number] 01/08/2020 11:37:02 AM EDT [facility] [...] Health results) System ID Date Data Source [id number] 01/08/2020 11:37:02 AM EDT [facility] Name Value Range Interpretation Description Data Sup porting Code Source(s) Document(s ) HepatitisBSurf Non Normal (applies Hepatitis B [facility] aceAntigen. ReactiveReferen to non-numeric [facility] Range: Non results) Antigen. System ReactiveTest Performed at:[facility], [place], [place] [address]HebvwwxcCari Lemons M.D. HepatitisBSurf DNRTest Normal (applies Hepatitis B [facility] aceAntigenNeut Performed to non-numeric [facility] at:[facility] results) Antigen [facility], [place], [place] [address]LtbaoffeCari Lemons M.D. ID Date Data Source [id number] 01/08/2020 11:37:02 AM EDT [facility] [...] or results) Plasma ID Date Data Source [id number] 01/08/2020 11:37:02 AM EDT [facility] [...] Health results) System ID Date Data Source [id number] 01/08/2020 11:37:02 AM EDT Karlos Macias alth [...] [facility] [Mass/volume] in to non-numeric Health S yste Serum or Plasma results) <200 mg/rm=[id number] mg/dl=border line>240 mg/dl=elevated Cholesterol in LDL 124 mg/dL Normal (applies Low Density [facility] [Mass/volume] in to non-numeric Lipoprotein, Healt h System Serum or Plasma results) Calculated OPTIMAL: LESS THAN 100 mg/dLNEAR OPTIMAL : 100 - 129 mg/dLBODERLINE HIGH: 130 - 150 mg/dL Cholesterol in HDL 43.0 mg/dL Normal (applies HDL Cholestero l, [facility] [Mass/volume] in to non-numeric Serum Health S yste Serum or Plasma results) CHDRisk 4.23 Normal (applies CHD Risk [facility] to non-numeric Health System results) Lowest <3.8Low 3.9 - 4.7Moderate 4 .8 - 5.9High 6.0 - 6.9Highest >7.0 Cholesterol in VLDL 15 Normal (applies to VLDL, Serum [facility] [Mass/volume] in Serum non-numeric results) System or Plasma ID Date Data Source [id number] 01/08/2020 11:37:02 AM EDValentina Macias alth System Name Value Range Interpretation Code Description Data Heidi rce(s) Supporting Document(s ) HbA1C 5.2 % Normal (applies to HbA1C [facility] non-numeric results) System ID Date Data Source [id number] 01/08/2020 11:37:02 AM EDT Karlos Macias alth [...] by Automated count ID Date Data Source [id number] 01/08/2020 11:37:02 AM EDT [facility] Name Value Range Interpretation Description Data Sup porting Code Source(s) Document(s ) Thyrotropin 0.636 Normal (applies Thyroid [facility] [Mass/volume] {mIU/mL} to non-numeric Stimulating Health Sy stem in Serum or results) Hormone, Serum Plasma ID Date Data Source [id number] 01/08/2020 11:37:02 AM EDT [facility] [...] 13.00 mmol/L Above high normal Anion Gap [facility] or Plasma System ID Date Data Source [id number] 01/08/2020 11:37:02 AM EDT [facility] System Name Value Range Interpretation Description Data Source(s ) Supporting Code Document(s ) Troponin 0.00 Normal (applies to Troponin I [facility] IQuantit ng/mL non-numeric Quantitative - Health System ative-MV results) MV Only Only ID Date Data Source [id number] 01/08/2020 11:37:02 AM EDT [facility] System Name Value Range Interpretation Description Data Sup porting Code Source(s) Document(s ) Creatine 213 Above high normal Creatine [facility] kinase.MB {IU/L} Kinase, Serum Health System [Mass/volume ] in Serum or Plasma ID Date Data Source [id number] 01/08/2020 09:56:00 AM EDT [facility] - [facility] Radiographs of the LEFT shoulderPATIENT DEMOGRAPHICS: [...] Hernandez, at 10:23 EDTTel , Service support ,[id number] Name Value Range Interpretation Code Description Data Heidi rce(s) Supporting Document(s ) Procedure Vital Signs ID Date Data Source UNK Name Value Range Interpretation Code Description Data Source(s) Body temperature 98.5 [degF] 0 - 200 Normal (applies to 98.5 [degF ] [facility] non-numeric results) [facility] Body temperature 36.9 Candi 0 - 99.9 Normal (applies to 36.9 Candi [facility] non-numeric results) [facility] Diastolic blood 90 mm[Hg] 0 - 999 Above high normal 90 mm[Hg] [facility] pressure [facility] System Systolic blood 132 mm[Hg] 0 - 999 Normal (applies to 132 mm[Hg] [facility] pressure non-numeric results) [facility] Oxygen saturation 98 % 0 - 999 Normal (applies to 98 % [facility] in Arterial blood non-numeric results) Health System by Pulse oximetry Respiratory rate 16 0 - 999 Normal (applies to 16 [facility] non-numeric results) [facility] Heart rate 86 0 - 999 Normal (applies to 86 [facility] non-numeric results) [facility] Body surface area 1.9 m2 1.9 m2 [facility] ore Derived from Health Syste m formula Body mass index 28.1 kg/m2 28.1 kg/m2 [facility] (BMI) [Ratio] Health Syst em Body weight 83.91 kg 83.91 kg [facility] Body height 172.72 cm 172.72 cm [facility] Body surface area 2.1 m2 2.1 m2 [facility] Derived from Health Syste m formula Body mass index 33.4 kg/m2 33.4 kg/m2 [facility] (BMI) [Ratio] [facility] Syst em Body weight 99.79 kg 99.79 kg [facility] Body height 172.72 cm 172.72 cm [facility] Body temperature 98.6 [degF] 0 - 200 Normal (applies to 98.6 [degF ] [facility] non-numeric results) [facility] Body temperature 37 Candi 0 - 99.9 Normal (applies to 37 Candi [facility] non-numeric results) [facility] Diastolic blood 91 mm[Hg] 0 - 999 Above high normal 91 mm[Hg] [facility] pressure [facility] Systolic blood 130 mm[Hg] 0 - 999 Normal (applies to 130 mm[Hg] [facility] pressure non-numeric results) [facility] Oxygen saturation 97 % 0 - 999 Normal (applies to 97 % [facility] in Arterial blood non-numeric results) [facility] by Pulse oximetry Respiratory rate 17 0 - 999 Normal (applies to 17 [facility] non-numeric results) [facility] Heart rate 108 0 - 999 Above high normal 108 [facility] Patient Treatment Plan of Care Planned Activity Planned Date Details Description Data Source (s) Ibuprofen 600 MG Oral 01/08/2020 10:01:37 [facility] [employer] Tablet AM EDT System benzonatate 100 MG Oral 07/10/2019 11:49:20 [facility] Caps[facility] AM EDT System
[2020-01-21] MEDS ORDERED: LIDOCAINE HCL 5% TOP OINTMENT 50 GM TUBE TP PRN (01:12)
[2020-01-21] MEDS: ACETAMINOPHEN 325 MG TABLET (FP) PO PRN ×2 (01:14→08:43)
[2020-01-21 05:22] VITALS: BP 107/58; PULSE 84; TEMP 98.6
--- NOTE | 2020-01-21 10:24 | OP ---
DATE OF OPERATION: 01/20/2020 PROCEDURE: Examination under anesthesia, hemorrhoidectomy, excision of anal papillae and perianal cyst/folliculitis. PRE-OPERATIVE DIAGNOSIS: R/O [id number], STAGE 3 HEMORRHOIDS POST-OP DIAGNOSIS: STAGE 3 HEMORRHOIDS, ANAL PAPILLA, CHRONIC FOLLICULITIS/PERIANAL CYST SURGEON: Jhoan King MD ANESTHESIA: Spinal. FINDINGS OF PROCEDURE: This is a 39-year-old male who presents with a chronic draining sinus of the perianal area at the 1 o'clock position. Patient also has stage 3 internal and external hemorrhoids at the right posterior column which is about 2 x 1 cm in size and an internal hemorrhoids at the left lateral hemorrhoidal column. So patient was advised examination under anesthesia with suspicion for a fistula in ano for possible anal fistulotomy and hemorrhoidectomy. Patient was advised examination under anesthesia, possible hemorrhoidectomy, and possible fistulotomy. Consent was obtained after discussing the risks, benefits, and alternatives to the procedure. DESCRIPTION OF PROCEDURE: Patient was brought to the operating room and placed in sitting position. Spinal anesthesia was administered. Patient was then placed in lithotomy position. The perineum was prepped and draped in the usual sterile fashion. Using lidocaine 1% with epinephrine, perianal anesthesia was administered. The anal canal was then carefully inspected, and stage 3 internal hemorrhoids were noted at the right posterior column, and stage 2 internal hemorrhoids were noted left lateral column. A 3-mm anal papilla was noted at the 7 o'clock position at the level of the dentate line. The sinus at 1 o'clock was probed but was noted to end in a blind superficial pouch in the subcutaneous area. It was deemed to be chronic folliculitis, so the skin around the area was excised using Bovie cautery. The right posterior column stage 3 hemorrhoid was excised by applying suture ligature above the dentate line using Vicryl 2-0 and excising the internal and external components using Bovie cautery. The wound was then closed with a continuous Vicryl 2-0 suture. The anal papilla at 7 o'clock position was removed and biopsied using Bovie cautery. The left lateral column stage 2 hemorrhoid was suture ligated with Vicryl 2-0. Some bleeding was noted of left lateral column hemorrhoids, and Surgicel was applied as well as injection with lidocaine 1% with epinephrine until hemostasis was achieved. The anal canal was again inspected and was noted to be free of active bleeding. The previously placed Ray-Nathaly gauze was removed, and the Surgicel was left in situ for further hemostasis. The patient was then placed in supine position, and ABD pad was applied. Patient was transferred to the postanesthesia care unit in satisfactory condition. ESTIMATED BLOOD LOSS: About 15 mL. WOUND CLASS: Dirty. PREOPERATIVE ANTIBIOTICS: The patient received 2 g of Ancef prior to the start of the procedure. Latoya [id number] MTDD
--- NOTE | 2020-01-26 11:46 | PATH ---
Surgical Pathology Report Patient Name: MELODY GORDON Med. Rec. #: [id number] /Age/Gender: 1980 (Age: 39) / M Account: <[id number]> Location: [facility] SURGICAL Taken: 01/20/2020 Received: 01/23/2020 Reported: 01/26/2020 Physicians: Jhoan King M.D. Specimen(s) Received A: PERIANAL SINUS B: ANAL PAPILLA C: HEMORRHOIDS Clinical History Fistula anus Final Diagnosis A. PERIANAL SINUS, BIOPSY: SQUAMOUS MUCOSA WITH ACANTHOSIS, HYPERKERATOSIS, FOCAL CHRONIC INFLAMMATION AND FIBROSIS IN THE DERMIS. B. ANAL PAPILLA, BIOPSY: POLYPOID SQUAMOUS MUCOSA AND SCANTY COLUMNAR EPITHELIUM WITH MARKED CAUTERY ARTIFACT. NEGATIVE FOR MALIGNANCY. C. HEMORRHOID, EXCISION: PORTION OF SQUAMOUS MUCOSA WITH HEMORRHOID. Electronically Signed Jossy Gardner M.D. Gross Description A. Received in formalin labeled "perianal sinus," is a 0.9 x 0.8 cm alicia-brown skin shave. The base is inked blue and the specimen is serially sectioned. The specimen is entirely submitted in one cassette. B. Received in formalin labeled "anal papilla," is a 0.5 x 0.3 x 0.2 cm alicia portion of skin. The specimen is submitted in toto in one cassette. C. Received in formalin labeled "hemorrhoids," is a 2.0 x 1.1 x 0.8 cm alicia-brown portion of skin. Sectioning reveals hemorrhagic soft tissue. Scale Mechanic sections are submitted in one cassette. /01/23/2020 saudi/01/23/2020
== END 2020-01-21 13:30 | disposition home or self-care (01) ==
LOC: JASUSAT 05:16 → JASU-SURG 05:16 → UNDOADMIN 21:30 → J8W 21:30 → JASUSAT 01-21 13:30 → UNDODISIN 01-21 13:30
PROVIDERS: ATTEND Surgery
PROC: 0DBQXZZ Excision of Anus, External Approach (ICD-10-PCS; 2020-01-20)
PROC: 0DBQ0ZX Excision of Anus, Open Approach, Diagnostic (ICD-10-PCS; 2020-01-20)
PROC: 06BY0ZC Excision of Hemorrhoidal Plexus, Open Approach (ICD-10-PCS; principal; 2020-01-20 09:30)
DX: K64.2 Third degree hemorrhoids (principal); K62.89 Other specified diseases of anus and rectum; L73.8 Other specified follicular disorders; L05.91 Pilonidal cyst without abscess
CPT/HCPCS: 94760

== ENCOUNTER 2023-01-23 13:52 | Emergency (ER) | payer OTHER ==
[2023-01-23 13:57] VITALS: BP 130/93; PULSE 103; RESP 18; TEMP 98.2; BMI 28.1
[2023-01-23] MEDS ORDERED: SODIUM CHLORIDE 0.9% 500 ML INFUS.BAG IV ONE (14:19)
[2023-01-23] MEDS ORDERED: MECLIZINE HCL 25 MG TABLET (FP) PO ONE (14:19)
[2023-01-23] MEDS ORDERED: ACETAMINOPHEN 1000 MG/100 ML BAG IVPB ONE (14:19)
[2023-01-23] MEDS ORDERED: MECLIZINE HCL 25 MG TABLET (FP) ONE (14:31)
[2023-01-23] MEDS ORDERED: ACETAMINOPHEN INJECTION 100 ML IVPB ONE (14:31)
[2023-01-23 14:56] LABS: BASO % 0.8 % (0-2.0); EOS % 3.8 % (0-4.5); HEMATOCRIT 45.7 % (35.4-49); HEMOGLOBIN 14.4 GM/dL (11.7-16.9); LYMPH % 26.2 % (8-40); MCH 26.6 pg (25.7-33.7); MCHC 31.6 g/dl (32.0-35.9); MEAN CELL VOLUME 84.1 fl (80-96); MEAN PLT VOLUME 8.9 fl (7.5-11.1); MONO % 10.7 % (3.8-10.2); NEUT % 58.5 % (42.8-82.8); PLATELET COUNT 275 10^3/uL (134-434); RBC 5.43 M/mm3 (4.00-5.60); RDW 13.5 % (11.9-15.9); WHITE BLOOD COUNT 7.4 K/mm3 (4.0-10.0)
[2023-01-23 15:12] LABS: POTASSIUM 4.5 mmol/L (3.5-5.1)
[2023-01-23 15:14] LABS: CALCIUM 9.2 mg/dL (8.5-10.1)
[2023-01-23 15:15] LABS: ALBUMIN 3.9 g/dl (3.4-5.0); BLOOD UREA NITROGEN 17.9 mg/dL (7-18)
[2023-01-23 15:18] LABS: CREATININE 1.2 mg/dL (0.55-1.3)
[2023-01-23 15:20] LABS: BILIRUBIN,TOTAL 0.3 mg/dL (0.2-1); TOT PROT 8.1 g/dl (6.4-8.2)
== END 2023-01-23 16:07 | disposition home or self-care (01) ==
LOC: JER 13:52
PROC: 3E033NZ Introduction of Analgesics, Hypnotics, Sedatives into Peripheral Vein, Percutaneous Approach (ICD-10-PCS; principal; 2023-01-23)
DX: R07.89 Other chest pain (principal); H57.89 Other specified disorders of eye and adnexa; R09.81 Nasal congestion; R42 Dizziness and giddiness; H10.33 Unspecified acute conjunctivitis, bilateral
CPT/HCPCS: 36415; 71046-TC-FY; 80053; 84484; 85025; 93005; 93010; 99285-25

== ENCOUNTER 2023-09-16 19:07 | Inpatient (IN) | payer SELFPAY ==
[2023-09-16 19:18] VITALS: BMI 34.1
[2023-09-16 19:42] LABS: EPI CELLS 2 /uL (0-25.1); HYALINE CASTS 3 /uL (0-3.1); PH,URINE 5.5 (5.0-8.0); URINE APPEARANCE CLOUDY; URINE BACTERIA 261 /uL (0-1359); URINE BILIRUBIN NEGATIVE (NEGATIVE); URINE COLOR YELLOW; URINE GLUCOSE (UA) NEGATIVE (NEGATIVE); URINE KETONE NEGATIVE (NEGATIVE); URINE LEUK ESTERASE 1+ (NEGATIVE); URINE NITRITE NEGATIVE (NEGATIVE); URINE PROTEIN 2+ (NEGATIVE); URINE WBC 259 /uL (0-25.8)
[2023-09-16 20:02] LABS: BASO % 0.5 % (0-2.0); EOS % 0.1 % (0-4.5); HEMATOCRIT 43.2 % (35.4-49); MCH 26.5 pg (25.7-33.7); MCHC 32.3 g/dl (32.0-35.9); MEAN CELL VOLUME 82.2 fl (80-96); MEAN PLT VOLUME 8.7 fl (7.5-11.1); MONO % 7.7 % (3.8-10.2); NEUT % 85.7 % (42.8-82.8); PLATELET COUNT 220 10^3/uL (134-434); RBC 5.26 M/mm3 (4.00-5.60); RDW 13.7 % (11.9-15.9); WHITE BLOOD COUNT 18.4 K/mm3 (4.0-10.0)
[2023-09-16 20:09] LABS: INR 1.21 (0.83-1.09); PROTHROMBIN TIME (PATIENT) 13.8 SEC (9.7-13.0)
[2023-09-16 20:12] LABS: ACTIVATED PTT 35.9 SECONDS (25.2-36.5)
[2023-09-16 20:18] LABS: URINE RBC 257.3 /uL (0-23.9); YEAST FEW (NEGATIVE)
[2023-09-16 20:30] LABS: ALBUMIN 3.8 g/dl (3.4-5.0); BLOOD UREA NITROGEN 17.2 mg/dL (7-18); CALCIUM 9.2 mg/dL (8.5-10.1)
[2023-09-16 20:33] LABS: CREATININE 1.4 mg/dL (0.55-1.3)
[2023-09-16 20:35] LABS: BILIRUBIN,TOTAL 1.2 mg/dL (0.2-1); TOT PROT 7.9 g/dl (6.4-8.2)
[2023-09-16] MEDS ORDERED: CEFTRIAXONE 1 GM/50 ML BAG ONE (20:38)
[2023-09-16] MEDS ORDERED: ACETAMINOPHEN INJECTION 100 ML IVPB ONE (20:38)
[2023-09-16] MEDS: LACTATED RINGERS SOLUTION 1000 ML INFUS.BAG IV ONE (20:46)
[2023-09-16] MEDS: ACETAMINOPHEN 1000 MG/100 ML BAG IVPB ONE (20:46)
[2023-09-16] MEDS: CEFTRIAXONE 1 GM in DEXTROSE 5%-WATER - 100 ML IVPB ONE (20:46)
[2023-09-16] MEDS ORDERED: DOCUSATE SODIUM 100 MG CAPSULE (FP) PO PRN (23:27)
[2023-09-16] MEDS: DEXTROSE 5%-NORMAL SALINE 1,000 ML IV SCH (23:50)
[2023-09-17] MEDS ORDERED: FLUTICASONE PROP 0.05% 16 GM NASAL SPRAY NS PRN (08:44)
[2023-09-17] MEDS: CEFTRIAXONE 1 GM in DEXTROSE 5%-WATER - 50 ML IVPB SCH (09:45)
[2023-09-17] MEDS: ENOXAPARIN NA (PORCINE) 40 MG/0.4 ML DISP.SYRIN SQ SCH (09:45)
[2023-09-17 10:38] LABS: BASO % 0.5 % (0-2.0); HEMOGLOBIN 13.2 GM/dL (11.7-16.9); LYMPH % 3.9 % (8-40); MCH 26.5 pg (25.7-33.7); MCHC 32.3 g/dl (32.0-35.9); MEAN CELL VOLUME 82.2 fl (80-96); MEAN PLT VOLUME 9.3 fl (7.5-11.1); MONO % 5.2 % (3.8-10.2); NEUT % 90.4 % (42.8-82.8); PLATELET COUNT 184 10^3/uL (134-434); RBC 4.99 M/mm3 (4.00-5.60); RDW 13.5 % (11.9-15.9); WHITE BLOOD COUNT 15.1 K/mm3 (4.0-10.0)
[2023-09-17 10:58] LABS: POTASSIUM 3.6 mmol/L (3.5-5.1)
[2023-09-17 11:13] LABS: ALBUMIN 3.2 g/dl (3.4-5.0); CALCIUM 8.7 mg/dL (8.5-10.1); MAGNESIUM 2.2 mg/dL (1.8-2.4)
[2023-09-17 11:16] LABS: BLOOD UREA NITROGEN 13.3 mg/dL (7-18)
[2023-09-17 11:17] LABS: CREATININE 1.2 mg/dL (0.55-1.3)
[2023-09-17 11:20] LABS: PHOSPHOROUS 2.5 mg/dL (2.5-4.9)
[2023-09-17 11:21] LABS: TOT PROT 6.8 g/dl (6.4-8.2)
[2023-09-17] MEDS: ACETAMINOPHEN 1000 MG/100 ML BAG IVPB PRN (12:33)
[2023-09-18] MEDS: ACETAMINOPHEN 325 MG TABLET (FP) PO PRN (05:25)
[2023-09-18 08:25] LABS: POTASSIUM 3.6 mmol/L (3.5-5.1)
[2023-09-18 08:27] LABS: CALCIUM 8.5 mg/dL (8.5-10.1)
[2023-09-18 08:31] LABS: CREATININE 1.1 mg/dL (0.55-1.3)
[2023-09-18 08:32] LABS: TOT PROT 6.6 g/dl (6.4-8.2)
[2023-09-18 08:33] LABS: BILIRUBIN,TOTAL 0.6 mg/dL (0.2-1)
[2023-09-19] MEDS: CEFTRIAXONE 2 GM in DEXTROSE 5%-WATER 100 ML IVPB SCH (09:13)
[2023-09-19 11:43] LABS: BASO % 0.9 % (0-2.0); HEMATOCRIT 41.6 % (35.4-49); HEMOGLOBIN 13.6 GM/dL (11.7-16.9); LYMPH % 20.4 % (8-40); MCH 26.7 pg (25.7-33.7); MCHC 32.7 g/dl (32.0-35.9); MEAN CELL VOLUME 81.7 fl (80-96); MEAN PLT VOLUME 9.2 fl (7.5-11.1); MONO % 15.7 % (3.8-10.2); PLATELET COUNT 231 10^3/uL (134-434); RBC 5.09 M/mm3 (4.00-5.60); RDW 13.6 % (11.9-15.9)
[2023-09-19 11:59] LABS: POTASSIUM 3.7 mmol/L (3.5-5.1)
[2023-09-19 12:04] LABS: CALCIUM 8.6 mg/dL (8.5-10.1)
[2023-09-19 12:05] LABS: ALBUMIN 2.9 g/dl (3.4-5.0); BLOOD UREA NITROGEN 7.6 mg/dL (7-18)
[2023-09-19 12:08] LABS: CREATININE 1.1 mg/dL (0.55-1.3)
[2023-09-19 12:09] LABS: BILIRUBIN,TOTAL 0.4 mg/dL (0.2-1); TOT PROT 6.7 g/dl (6.4-8.2)
[2023-09-20] MEDS: LORATADINE 10 MG TABLET PO SCH (17:39)
[2023-09-21 09:31] LABS: BASO % 0.4 % (0-2.0); EOS % 4.4 % (0-4.5); HEMATOCRIT 40.9 % (35.4-49); LYMPH % 28.3 % (8-40); MCH 26.1 pg (25.7-33.7); MCHC 31.8 g/dl (32.0-35.9); MEAN CELL VOLUME 82.2 fl (80-96); MEAN PLT VOLUME 8.5 fl (7.5-11.1); MONO % 13.6 % (3.8-10.2); NEUT % 53.3 % (42.8-82.8); PLATELET COUNT 284 10^3/uL (134-434); RBC 4.98 M/mm3 (4.00-5.60); RDW 13.6 % (11.9-15.9); WHITE BLOOD COUNT 5.7 K/mm3 (4.0-10.0)
[2023-09-21 09:43] LABS: POTASSIUM 4.4 mmol/L (3.5-5.1)
[2023-09-21 09:45] LABS: CALCIUM 9.1 mg/dL (8.5-10.1)
[2023-09-21 09:46] LABS: ALBUMIN 3.1 g/dl (3.4-5.0); BLOOD UREA NITROGEN 7.6 mg/dL (7-18)
[2023-09-21 09:50] LABS: BILIRUBIN,TOTAL 0.4 mg/dL (0.2-1); TOT PROT 6.9 g/dl (6.4-8.2)
[2023-09-21] MEDS: FLUTICASONE PROP 0.05% 16 GM NASAL SPRAY NS SCH (10:25)
[2023-09-21 11:35] VITALS: BP 102/73; PULSE 76; RESP 18; TEMP 98.5
== END 2023-09-21 12:37 | disposition home or self-care (01) | DRG 720 ==
LOC: JER 19:07 → JERBED 21:01 → J5S 09-17 01:39
PROVIDERS: ADMIT Internal Medicine; ATTEND Family Medicine
DX: A41.9 Sepsis, unspecified organism (principal); N39.0 Urinary tract infection, site not specified; B96.20 Unspecified Escherichia coli [E. coli] as the cause of diseases classified elsewhere; N40.0 Benign prostatic hyperplasia without lower urinary tract symptoms; Z68.34 Body mass index [BMI] 34.0-34.9, adult
CPT/HCPCS: 36415; 71046-TC-FY; 74176-TC; 80048; 80053; 81003; 83605; 83735; 84100; 85025; 85610; 85730; 86850; 86900; 86901; 87040; 87086; 87186; 93005; 93010; 99285-25; J0131